=== PATIENT | male | born 1995 | race Two or more races ===

== ENCOUNTER 2023-10-16 13:18 | Emergency (ER) | payer MEDICAID ==
[~2023-10-16] VITALS: Ht 170.2 cm; Wt 59.0 kg
--- NOTE | 2023-10-16 13:30 | NUR ---
BIBS FOR DECLINE IN VISION OVER A YEAR. THE PATIENT DENIES PAIN.
--- NOTE | 2023-10-16 13:45 | NUR ---
Patient discharged to home in stable condition. Written and verbal after care instructions given. Patient verbalizes understanding of instruction.
[2023-10-16 13:46] VITALS: BP 125/78; TEMP 98.7; O2SAT 100
== END 2023-10-16 13:46 | disposition home or self-care (01) ==
LOC: ER 13:18
DX: H54.7 Unspecified visual loss (principal)